=== PATIENT | male | born 1935 | race Caucasian/White ===

== ENCOUNTER 2018-04-30 21:58 | Emergency (ER) | payer OTHER, MEDICARE ==
--- NOTE | 2018-04-30 22:26 | EDPHY ---
General Time Seen by Provider: 04/30/18 22:14 Narrative: CHIEF COMPLAINT: Foot pain and swelling HISTORY OF PRESENT ILLNESS: Patient presents by private vehicle with his spouse with complaints of left foot pain and swelling. Symptoms started as swelling of the left foot yesterday. The swelling has come and gone. It is worse when he is upright. Improves when he raises his leg. He did not have any pain in this foot until this evening [place] He has minimal pain at rest. Mild pain when he ambulates. The pain is located in the plantar surface of the left foot only. He has no pain of the left thigh, knee or calf. No redness or warmth. He has no chest pain or shortness of breath. No history of venous thrombolic event. He does prostate cancer, completing radiation therapy less than 2 weeks ago. No fever chills. No difficulty ambulating. No other associated complaints or modifying factors. REVIEW OF SYSTEMS: 10 systems were reviewed and negative with the exception of the elements mentioned in the history of present illness. PCP: Dr. Apodaca SPECIALISTS: Oncology PAST MEDICAL HISTORY: Prostate cancer, neuropathy PAST SURGICAL HISTORY: No recent surgical history SOCIAL HISTORY: Never smoker. Lives independently with his spouse. Retired psychologist FAMILY HISTORY: Noncontributory EXAMINATION: Vitals: Triage VS reviewed General Appearance: Alert, no distress. Well appearing. Head: normocephalic, atraumatic Eyes: Pupils equal and round, no conjunctival pallor or injection ENT, Mouth: Mucous membranes moist Neck: Normal inspection, supple, non-tender Respiratory: Lungs are clear to auscultation Cardiovascular: Regular rate and rhythm. Symmetric DP and PT pulses 2+. Multiple varicosities of both lower extremities. Gastrointestinal: Abdomen is soft and nontender Neurological: A&O, nonfocal, light sensory symmetric in lower extremities. Normal steady gait. Skin: Warm and dry, no rash. No cellulitis. Extremities: Mild edema that is nonpitting and tender to the dorsum of the left foot. There is no edema to the left calf. There is no pain with passive dorsiflexion of the left ankle. No palpable cord. Range of motion lower extremities symmetric. All compartments are soft and lower extremities without any evidence of septic joint or osteomyelitis. Psychiatric: Mood and affect normal DIFFERENTIAL DIAGNOSES: Including but not limited to DVT, edema, stress fracture, Stephens's neuroma, MDM: 10:20 p.m. Left foot pain and swelling over the past 24 hr. This is somewhat positional only painful since this evening. He does have mild swelling only in the left foot without extension into the rest extremity. Mild pain at the plantar surface of the foot. Remainder examination is unremarkable., fever or difficulty ambulating. 11:30 p.m. Notified by radiologist Dr. Welch. Ultrasound is negative for DVT. 11:50 p.m. Laboratory studies are unremarkable. X-rays unremarkable for any acute findings. I have re-evaluated the patient and discussed the negative findings. We discussed the need for outpatient follow-up for further care. We discussed ED precautions for any redness, warmth fever difficulty ambulating. Both the patient's spouse are comfortable this plan. He is well-appearing and discharged home stable condition. SUPERVISION: This patient was independently evaluated without direct involvement of or examination by the attending physician. CONSULTATION: None - Diagnostics Imaging Results: Imaging Impressions Foot X-Ray 04/30/18 22:09 Impression: 1. No acute fracture. 2. No definite degenerative or inflammatory arthropathy. Extremity Venous Study 04/30/18 22:26 Impression: No deep venous thrombosis left leg. Findings and recommendations discussed with Emergency Department physician, Hebert Lopez PAC at 23:41 hour, 04/30/2018. Final report concurs with initial preliminary interpretation. - History Smoking Status: Never smoked - Objective Vital Signs: Initial Vital Signs Temperature (C) 97.5 F 04/30/18 22:03 Heart Rate 75 04/30/18 22:03 Respiratory Rate 16 04/30/18 22:03 Blood Pressure 157/92 H 04/30/18 22:03 O2 Sat (%) 96 04/30/18 22:03 O2 Delivery Mode Room Air Allergies/Adverse Reactions: No Known Allergies Allergy (Unverified 04/30/18 22:02) Home Medications: Medication Instructions Recorded Cymbalta 04/30/18 LYRICA 04/30/18 Levaquin 04/30/18 Lisinopril 04/30/18 Laboratory Results: Laboratory Results 04/30/18 22:36 04/30/18 22:36 04/30/18 04/30/18 22:36 22:36 WBC 6.12 10^3/uL 10^3/uL (3.80-9.50) RBC 3.77 10^6/uL L 10^6/uL (4.40-6.38) Hgb 13.5 g/dL L g/dL (13.7-17.5) Hct 40.7 % % (40.0-51.0) MCV 108.0 fL H fL (81.5-99.8) MCH 35.8 pg H pg (27.9-34.1) MCHC 33.2 g/dL g/dL (32.4-36.7) RDW 13.7 % % (11.5-15.2) Plt Count 250 10^3/uL 10^3/uL (150-400) MPV 9.0 fL fL (8.7-11.7) Neut % (Auto) 83.9 % H % (39.3-74.2) Lymph % (Auto) 4.9 % L % (15.0-45.0) [place] % (Auto) 8.7 % % (4.5-13.0) Eos % (Auto) 1.0 % % (0.6-7.6) Baso % (Auto) 0.5 % % (0.3-1.7) Nucleat RBC Rel Count 0.0 % % (0.0-0.2) Absolute Neuts (auto) 5.14 10^3/uL 10^3/uL (1.70-6.50) Absolute Lymphs (auto) 0.30 10^3/uL L 10^3/uL (1.00-3.00) Absolute Monos (auto) 0.53 10^3/uL 10^3/uL (0.30-0.80) Absolute Eos (auto) 0.06 10^3/uL 10^3/uL (0.03-0.40) Absolute Basos (auto) 0.03 10^3/uL 10^3/uL (0.02-0.10) Absolute Nucleated RBC 0.00 10^3/uL 10^3/uL (0-0.01) Immature Gran % 1.0 % % (0.0-1.1) Seg Neutrophils % 87.1 % % Band Neutrophils % 0.0 % % Lymphocytes % 2.0 % % Monocytes % 6.9 % % Eosinophils % 3.0 % % Basophils % 1.0 % % Metamyelocytes % 0.0 % % Myelocytes % 0.0 % % Promyelocytes % 0.0 % % Blast Cells % 0.0 % % Immature Gran # 0.06 10^3/uL 10^3/uL (0.00-0.10) Absolute Seg Neuts 5.33 10^3/uL 10^3/uL (1.70-6.50) Absolute Band Neuts 0.00 10^3/uL 10^3/uL (0.00-0.70) Absolute Lymphocytes 0.12 10^3/uL L 10^3/uL (1.00-3.00) Absolute Monocytes 0.42 10^3/uL 10^3/uL (0.30-0.80) Absolute Eosinophils 0.18 10^3/uL 10^3/uL (0.03-0.40) Absolute Basophils 0.06 10^3/uL 10^3/uL (0.02-0.10) Absolute Metamyelocyte 0.00 10^3/mL 10^3/mL (0.00-0.00) Absolute Myelocytes 0.00 10^3/mL 10^3/mL (0.00-0.00) Absolute Promyelocytes 0.00 10^3/uL 10^3/uL (0.00-0.00) Absolute Plasma Cells 0.00 10^3/uL 10^3/uL (0.00-0.00) Nucleated RBCs 1.0 /100 WBC H /100 WBC (0-0) Absolute Blast Cells 0.00 10^3/uL 10^3/uL (0.00-0.00) Plasma Cells % 0.0 % % Platelet Estimate ADEQUATE (ADEQ) Oval Macrocytes 1+ H ESR 5 MM/HR MM/HR (0-20) Sodium 139 mEq/L mEq/L (135-145) Potassium 5.0 mEq/L mEq/L (3.3-5.0) Chloride 103 mEq/L mEq/L (97-110) Carbon Dioxide 29 mEq/l mEq/l (22-31) Anion Gap 7 mEq/L mEq/L (6-14) BUN 28 mg/dL H mg/dL (7-23) Creatinine 1.3 mg/dL mg/dL (0.7-1.3) Estimated GFR 53 Glucose 96 mg/dL mg/dL (70-100) Calcium 10.0 mg/dL mg/dL (8.5-10.4) Departure - Departure Disposition: Home, Routine, Self-Care Clinical Impression: Edema of left foot, Left foot pain Condition: Good Instructions: Leg Edema (ED) Additional Instructions: 1. Ice and elevate the extremity often 2. Contact primary care physician tomorrow morning for outpatient care 3. ED precautions for any redness, warmth, fever or difficulty ambulating on the left leg Referrals: DUY APODACA [Other] - As per Instructions
[2018-04-30 22:47] LABS: PLATELET COUNT 250 10^3/uL (150-400)
[2018-05-01 00:06] VITALS: BP 133/79
== END 2018-05-01 00:06 | disposition home or self-care (01) ==
DX: M79.672 Pain in left foot (principal); M79.89 Other specified soft tissue disorders; Z86.718 Personal history of other venous thrombosis and embolism; Z87.312 Personal history of (healed) stress fracture